=== PATIENT | female | born 1985 | race Caucasian/White ===

== ENCOUNTER 2023-01-13 12:55 | Outpatient (CLI) | payer BC, SELFPAY ==
--- NOTE | 2023-01-13 13:00 | MR_ITS ---
[address] [address] Phone:?[phone] Fax:?[phone] Referring Physician Information: Ralf Saez [address] [facility] [address] Phone:?[phone] Fax:?[phone] Patient:Bear Mcgrath D.O.B:?1985 Sex:?Female Phone:?[phone] [facility] MRN:?[id number] Exam Date:?01/13/2023 ? EXAM: MRI of the LEFT WRIST, without contrast CLINICAL HISTORY: Mass lesion of the left wrist. Evaluate ganglion cyst. COMPARISONS: Plain radiographs 01/04/2023. TECHNICAL: MR sequences of the left wrist were obtained: coronals: T1, PD FS sagittals: PD FS axials: PD, PD FS Sedation: None Contrast: None FINDINGS: Joints and osseous structures: No fracture or suspicious bone marrow signal normality is seen. There is no subluxation, dislocation, joint space narrowing, or erosive change. TFCC: The triangular fibrocartilage proper is intact. The proximal and distal laminae of the ulnar attachment are intact. The volar and dorsal radioulnar ligaments are intact. Ligaments: Scapholunate: Intact. The scapholunate interval and angle are normal. The capitolunate angle is normal. Lunotriquetral: No evidence of tear on this nonarthrogram study. No offset of the lunotriquetral interval. Tendons: Flexors: Intact without tendinopathy or tenosynovitis. Extensors: ECU & 6th extensor compartment: Intact without mehrdad tendinopathy tear or longitudinal splitting. Extensor retinaculum and fibrous subsheath appear intact without demonstrable subsheath injury or nonphysiologic ECU displacement. 1st - 5th extensor compartments: Intact and unremarkable. Neurovascular: Median: Unremarkable carpal tunnel without convincing neuritis or intrinsic/extrinsic masses. Ulnar: Unremarkable Guyon's canal without intrinsic/extrinsic masses. Ganglia: There is a 1.4 cm in craniocaudad dimension by 0.4 cm in AP dimension by 1.0 cm in transverse dimension ganglion at the dorsal and distal aspect of the scapholunate interval extending over the dorsal aspect of the capitate. IMPRESSION: 1. 1.4 x 0.4 x 1.0 cm ganglion at the dorsal and distal aspect of the scapholunate interval extending over the dorsal aspect of the capitate. 2. Otherwise, unremarkable MRI of the left wrist. RCB Electronically signed on 01/13/2023 3:43:00 PM by Billy Gonzalez M.D.
== END 2023-01-13 12:56 | disposition home or self-care (01) ==
PROVIDERS: PCP Physician Assistant; Visit Provider Physician Assistant Surgical
DX: M25.532 Pain in left wrist (principal); M67.40 Ganglion, unspecified site
CPT/HCPCS: 73221

== ENCOUNTER 2023-02-08 06:08 | Day surgery (SDC) | payer BC, SELFPAY ==
[2023-02-08] VITALS (7 sets, daily range): BP systolic 133–151; BP diastolic 79–92; PULSE 78–93; RESP 18; TEMP 36.3–36.7; O2SAT 98–99; BMI 19.2
[2023-02-08] MEDS: LACTATED RINGERS 1000 ML 1,000 ML 100 ML IV (06:05)
[2023-02-08] MEDS: SODIUM CHLORIDE 0.9 % (FLUSH) 10 ML SYRINGE IVF (07:10)
--- NOTE | 2023-02-08 07:11 | SUR.PREOP ---
TIME?OUT:?7 12 AM PT/RN/MDA?VERIFICATION?OF?SURGICAL?SITE,?PROCEDURE,?AND?CONSENT OBTAINED?PRIOR?TO?INVASIVE?PROCEDURE.
[2023-02-08] MEDS: fentaNYL 100 MCG/2 ML inj IVP (07:14)
[2023-02-08] MEDS: MIDAZOLAM HCL 1 MG/ML inj IVP (07:14)
[2023-02-08 07:16] LABS: HCG Qualitative Serum* Negative (Negative)
--- NOTE | 2023-02-08 07:46 | W.ANESCHARGE ---
Anesthesia Charges Start Date/Time Anesthesia Start Date: 02/08/23 Anesthesia Start Time: 07:27 Stop Date/Time Anesthesia Stop Date: 02/08/23 Anesthesia Stop Time: 08:09
--- NOTE | 2023-02-08 08:11 | P.ORPRC_ITS ---
Procedure Note Date of procedure: 02/08/23 Procedure: PREOPERATIVE DIAGNOSIS: 1. Left dorsal wrist benign cyst POSTOPERATIVE DIAGNOSIS: 1. Left dorsal wrist benign cyst PROCEDURE: 1. Left dorsal wrist benign cyst open excision SURGEON: Sumeet Garland MD. OFFICE TECHNOLOGY PROFESSOR: Samia Guillen PA-C - Of note, an group fitness assistant department head was critical for this case to aid in patient positioning, tissue retraction, limb manipulation/positioning, patient safety, & closure. ANESTHESIA: Regional block plus MAC EBL: Less than 2 mL IMPLANTS: None TOURNIQUET: 15 minutes at 250 torr COMPLICATIONS: None evident INDICATIONS: The patient is a pleasant 37-year-old female who has experienced left dorsal wrist growth/mass/cyst development over number of months. This has become somewhat bothersome rim insert wrist postures, specifically wrist extension. Nonoperative management has been tried but unsuccessful. Given the failure of nonoperative management, and how this affects daily life, surgery was recommended. DESCRIPTION OF PROCEDURE: Following a thorough discussion of risks, benefits, and alternatives consent was obtained and the operative extremity was marked. The patient was brought to the operating room and placed supine on the operating table. No antibiotics were administered as this was planned to be a local case only. Proper time-out was performed identifying proper patient, site, and procedure. The operative extremity was prepped and draped in the appropriate sterile fashion using ChloraPrep. The limb was exsanguinated and the tourniquet inflated. An incision was made on the dorsal aspect of left wrist longitudinally. Sharp incision through the skin, and blunt dissection through subcutaneous tissue allowed us to protect crossing neurologic structures. After dividing the extensor retinaculum transversely in line with the fibers, the cyst was better encountered/clearly visualized. It was mobilized from the surrounding tissue. The stalk was traced deep. This indeed penetrated through the dorsal wrist capsule into the joint. We were able to mobilize the cyst fully, and truncate the stalk at its base using combination of tenotomy scissors and bipolar cautery. The cyst was sent for permanent pathology. At this stage, the tourniquet was deflated and hemostasis achieved. Closure was performed with 3-0 Vicryl for extensor retinaculum reapproximation, and 4-0 Monocryl for subcuticular closure. Soft dressings were applied, and the patient was awoken/transferred to the recovery room in stable condition. PLAN: 1. Encourage elevation of the operative extremity. 2. Range of motion of the operative extremity/digits as tolerated. 3. Ibuprofen, acetaminophen and/or Percocet as needed for pain. 4. Follow up with PA visit in 12-16 days for wound check.
--- NOTE | 2023-02-08 08:15 | W.ANESCHARGE ---
Anesthesia Charges Start Date/Time Anesthesia Start Date: 02/08/23 Anesthesia Start Time: 07:27 Stop Date/Time Anesthesia Stop Date: 02/08/23 Anesthesia Stop Time: 08:09
--- NOTE | 2023-02-08 08:16 | P.NB_ITS ---
Nerve Block Nerve Block Time Seen by Provider: 07:16 Date Seen: 02/08/23 Type of block requested by surgeon for post-operative analgesia: axillary Side: left Time out performed: Yes Verification of patient name: Yes Verification of date of : Yes Site marking: site marked Name of person performing procedure: Felix Continuous monitoring Was continuous monitoring of O2 sat, B/P, bread and pastry baker, recorded every 15 minutes?: Yes Procedure Checklist: sterile prep, needles and gloves Ultrasound guided. Images saved: Yes Medications given in 5ml increments after negative aspiration: Ropivicaine %: 0.5 mL: 10 Needle gauge: 22 and Lidocaine %: 2 mL: 20 Patient tolerated procedure well: Yes Additional comments: Needle noted adjacent to nerve Block Charges Block Charge (with Pro Fee): Brachial Plexus Use of Ultrasound Machine for Block: Yes- US Guidance/pain block
== END 2023-02-08 09:10 | disposition home or self-care (01) ==
PROVIDERS: PCP Physician Assistant; Visit Provider Orthopaedic Surgery Sports Medicine
PROC: (CPT 25111; principal; 2023-02-08 07:30)
DX: M67.432 Ganglion, left wrist (principal); G89.18 Other acute postprocedural pain
CPT/HCPCS: 25111; 01810; 01830; 36415; 64415; 76942; 81025; 82962; 84703; 88304; J2250; J2704; J2795; J3010; J7120